=== PATIENT | female | born 1980 | race Caucasian/White ===

== ENCOUNTER 2016-11-17 00:15 | Emergency (ER) | payer BC, OTHER ==
[2016-11-17] MEDS ORDERED: AMOX TR/POT CLAV 875MG/125MG TABLETS (FP) PO STA (00:32)
--- NOTE | 2016-11-17 00:32 | PDOC ---
History of Present Illness - General History Source: Patient <Thien Olvera - Last Filed: 11/17/16 00:35> - General History Source: Patient Exam Limitations: No Limitations - History of Present Illness Initial Comments: 11/17/16 00:40 The patient is a 36 year old female with significant past medical history of anemia who presents to the ED with 1 day of bilateral ear pain. She describes her ear pain as a pressure-like sensation. Patient reports having tactile fever. 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 The patient denies chills, cough, SOB, chest pain, and palpitations. The patient denies abdominal pain, nausea, vomiting, and diarrhea. Allergies: codeine Social History: No alcohol, tobacco, or drug use reported. Past Surgical History: None reported PCP: None reported <Massiel Jj - Last Filed: 11/17/16 00:40> - General Chief Complaint: Ear Problem Stated Complaint: EAR PAIN Time Seen by Provider: 11/17/16 00:26 Past History - Past Medical History Anemia: Yes Kidney Stones: Yes - Psycho/Social/Smoking Cessation Hx Anxiety: No Suicidal Ideation: No Smoking Status: No Smoking History: Never smoked Have you smoked in the past 12 months: No Number of Cigarettes Smoked Daily: 0 Hx Alcohol Use: No Substance Use Type: None <Thien Olevra - Last Filed: 11/17/16 00:35> <Massiel Jj - Last Filed: 11/17/16 00:40> - Past Medical History Allergies/Adverse Reactions: Allergies Allergy/AdvReac Type Severity Reaction Status Date / Time codeine [Codeine] Allergy Verified 11/17/16 00:29 Home Medications: Ambulatory Orders Esomeprazole Mag Trihydrate [Nexium] 20 mg PO BID #14 capsule 05/05/14 Amox-Tr/K Cl [Augmentin 875Mg Tablet] 1 tab PO BID #20 tablet 11/17/16 Ibuprofen 800 mg PO TID #30 tablet 11/17/16 Pseudoephedrine HCl [Sudafed] 30 mg PO Q6H #20 tablet 11/17/16 Review of Systems - Review of Systems Able to Perform ROS?: Yes Comments:: 11/17/16 00:40 CONSTITUTIONAL: +tactile fever Absent: no chills, no fatigue EYES: Absent: visual changes ENT: +bilateral ear pain Absent: myra sore throat CARDIOVASCULAR: Absent: chest pain, no palpitations RESPIRATORY: Absent: cough, no SOB GI: Absent: abdominal pain, no nausea, no vomiting, no constipation, no diarrhea GENITOURINARY: Absent: dysuria, no frequency, no hematuria MUSKULOSKELETAL: Absent: back pain, no arthralgia, no myalgia SKIN: Absent: rash NEURO: Absent: headache <Massiel Jj - Last Filed: 11/17/16 00:40> *Physical Exam - Vital Signs Last Vital Signs Temp Pulse Resp BP Pulse Ox 98.4 F 78 18 131/100 100 11/17/16 00:30 11/17/16 00:30 11/17/16 00:30 11/17/16 00:30 11/17/16 00:30 <Thien Olvera - Last Filed: 11/17/16 00:35> - Vital Signs Last Vital Signs Temp Pulse Resp BP Pulse Ox 98.4 F 78 18 131/100 100 11/17/16 00:30 11/17/16 00:30 11/17/16 00:30 11/17/16 00:30 11/17/16 00:30 - Physical Exam Comments: 11/17/16 00:40 GENERAL: Well-appearing, well-nourished. No apparent distress. HEENT: Normocephalic, atraumatic. PERRL, EOM intact. Bilateral erythema and edema of both ear canals. Bilateral otalgia with serous discharge. CARDIOVASCULAR: Normal S1, S2. Regular rate and rhythm. PULMONARY: Clear to auscultation bilaterally. ABDOMEN: Soft, non-distended, non-tender. EXTREMITIES: Normal ROM in all four extremities. No gross deformities. SKIN: Warm, dry. No rash NEUROLOGICAL: No focal neurological deficits. <Massiel Jj - Last Filed: 11/17/16 00:40> Medical Decision Making - Medical Decision Making 11/17/16 00:36 Dr. Olvera: The scribe's documentation has been prepared under my direction and personally reviewed by me in its entirery. I confirm that the note above accurately reflects all work, treatment, procedures, and medical decision making performed by me. Pt with bilateral ear pain. Found to have otitis externa. Rz medication including Augment 875mg transmitted to the pharmacy <Thien Olvera - Last Filed: 11/17/16 00:35> *DC/Admit/Observation/Transfer - Discharge Dispostion Admit: No <Thien Olvera - Last Filed: 11/17/16 00:35> - Attestations Scribe Attestion: 11/17/16 00:40 Documentation prepared by Massiel Jj, acting as medical officer for Thien Olvera MD <Massiel Jj - Last Filed: 11/17/16 00:40> Diagnosis at time of Disposition: Bilateral otitis externa Qualifiers: Otitis externa type: unspecified type Chronicity: acute Qualified Code(s): H60.503 - Unspecified acute noninfective otitis externa, bilateral - Discharge Dispostion Disposition: HOME Condition at time of disposition: Stable - Prescriptions Prescriptions: Amox-Tr/K Cl [Augmentin 875Mg Tablet] 1 tab PO BID #20 tablet Ibuprofen 800 mg PO TID #30 tablet Pseudoephedrine HCl [Sudafed] 30 mg PO Q6H #20 tablet - Patient Instructions Printed Discharge Instructions: DI for Otitis Externa
[2016-11-17] MEDS ORDERED: PSEUDOEPHEDRINE HCL 30 MG TABLET PO STA (00:33)
[2016-11-17] MEDS ORDERED: IBUPROFEN 400 MG TABLET (FP) PO ONE ×2 (00:38→01:07)
[2016-11-17 00:40] VITALS: BP 131/100; PULSE 78; TEMP 98.4; BMI 35.0
[2016-11-17] MEDS ORDERED: PSEUDOEPHEDRINE HCL 60 MG TABLET ONE (01:07)
[2016-11-17] MEDS ORDERED: AMOX TR/POT CLAV 875MG/125MG TABLETS (FP) ONE (01:07)
== END 2016-11-17 01:11 | disposition home or self-care (01) ==
LOC: JER 00:15
DX: H60.503 Unspecified acute noninfective otitis externa, bilateral (principal)
CPT/HCPCS: 99281-25

== ENCOUNTER 2024-02-29 20:33 | Observation (INO) | payer BC ==
[2024-02-29] MEDS ORDERED: ACETAMINOPHEN INJECTION 100 ML IVPB ONE (22:02)
[2024-02-29] MEDS ORDERED: ONDANSETRON 4 MG/2 ML VIAL ONE (22:02)
[2024-02-29] MEDS: ONDANSETRON 4 MG/2 ML VIAL IVPUSH ONE (22:29)
[2024-02-29] MEDS: SODIUM CHLORIDE 1,000 ML IV STA (22:29)
[2024-02-29] MEDS: ACETAMINOPHEN 1000 MG/100 ML BAG IVPB ONE (22:29)
[2024-02-29 22:42] LABS: BASO % 0.2 % (0-2.0); EOS % 0.2 % (0-4.5); HEMATOCRIT 30.2 % (32.4-45.2); HEMOGLOBIN 9.6 GM/dL (10.7-15.3); MCH 23.1 pg (25.7-33.7); MCHC 31.8 g/dl (32.0-36.0); MEAN CELL VOLUME 72.6 fl (80-96); MEAN PLT VOLUME 7.7 fl (7.5-11.1); MONO % 7.7 % (3.8-10.2); NEUT % 81.9 % (42.8-82.8); PLATELET COUNT 287 10^3/uL (134-434); RBC 4.16 M/mm3 (3.60-5.2); RDW 17.9 % (11.6-15.6); WHITE BLOOD COUNT 9.3 K/mm3 (4.0-10.0)
[2024-02-29] MEDS ORDERED: CEFTRIAXONE 1 GM/50 ML BAG ONE (22:42)
[2024-02-29 22:43] LABS: PH,URINE 6.5 (5.0-8.0); URINE APPEARANCE CLEAR; URINE BILIRUBIN NEGATIVE (NEGATIVE); URINE COLOR YELLOW; URINE GLUCOSE (UA) NEGATIVE (NEGATIVE); URINE KETONE NEGATIVE (NEGATIVE); URINE LEUK ESTERASE NEGATIVE (NEGATIVE); URINE NITRITE NEGATIVE (NEGATIVE); URINE PROTEIN TRACE (NEGATIVE)
[2024-02-29 22:50] LABS: INR 1.18 (0.83-1.09); PROTHROMBIN TIME (PATIENT) 13.5 SEC (9.7-13.0)
[2024-02-29] MEDS: CEFTRIAXONE 1,000 MG in DEXTROSE 5%-WATER - 50 ML IVPB ONE (22:50)
[2024-02-29 22:52] LABS: ACTIVATED PTT 30.7 SECONDS (25.2-36.5)
[2024-02-29 22:58] LABS: VENOUS BASE EXCESS -0.3 mmol/L (-2-2); VENOUS O2 SATURATION 66.6 % (70-80); VENOUS PCO2 39.9 mmHg (38-52); VENOUS PH 7.403 (7.310-7.410)
[2024-02-29 23:08] LABS: POTASSIUM 3.9 mmol/L (3.5-5.1)
[2024-02-29 23:09] LABS: CALCIUM 8.7 mg/dL (8.5-10.1)
[2024-02-29 23:10] LABS: ALBUMIN 3.8 g/dl (3.4-5.0); BLOOD UREA NITROGEN 13.9 mg/dL (7-18)
[2024-02-29 23:13] LABS: CREATININE 1.1 mg/dL (0.55-1.3)
[2024-02-29 23:15] LABS: BILIRUBIN,TOTAL 0.4 mg/dL (0.2-1); TOT PROT 7.4 g/dl (6.4-8.2)
[2024-03-01] MEDS ORDERED: IBUPROFEN 600 MG TABLET (FP) PO ONE (01:08)
[2024-03-01] MEDS: IBUPROFEN 600 MG TABLET (FP) PO ONE (01:26)
[2024-03-01] MEDS: SODIUM CHLORIDE 1,000 ML IV STA (02:25)
[2024-03-01] MEDS: SODIUM CHLORIDE 1,000 ML IV SCH (02:25)
[2024-03-01] MEDS: ACETAMINOPHEN 1000 MG/100 ML BAG IVPB PRN (04:48)
[2024-03-01] MEDS: KETOROLAC TROMETHAMINE 15 MG/ML VIAL IVPUSH PRN (10:44)
[2024-03-01] MEDS: LEVOTHYROXINE NA 88 MCG TABLET (FP) PO SCH (14:22)
[2024-03-01 16:04] LABS: HEMATOCRIT 32.3 % (32.4-45.2); HEMOGLOBIN 10.1 GM/dL (10.7-15.3); MCHC 31.4 g/dl (32.0-36.0); MEAN CELL VOLUME 73.3 fl (80-96); MEAN PLT VOLUME 7.7 fl (7.5-11.1); PLATELET COUNT 275 10^3/uL (134-434); RBC 4.41 M/mm3 (3.60-5.2); RDW 18.2 % (11.6-15.6); RETICULOCYTES 0.98 % (0.5-1.5); WHITE BLOOD COUNT 7.8 K/mm3 (4.0-10.0)
[2024-03-01 16:18] LABS: CHLORIDE 106 mmol/L (98-107); POTASSIUM 3.4 mmol/L (3.5-5.1); POTASSIUM 3.5 mmol/L (3.5-5.1); SODIUM 137 mmol/L (136-145)
[2024-03-01 16:20] LABS: ALBUMIN 3.8 g/dl (3.4-5.0); CALCIUM 8.9 mg/dL (8.5-10.1)
[2024-03-01 16:21] LABS: ANION GAP 5 mmol/L (4-13); BLOOD UREA NITROGEN 8.7 mg/dL (7-18); CALCIUM 8.9 mg/dL (8.5-10.1); CO2 27 mmol/L (21-32); GLUCOSE,RANDOM 94 mg/dL (74-106); MAGNESIUM 2.2 mg/dL (1.8-2.4)
[2024-03-01 16:23] LABS: CREATININE 0.9 mg/dL (0.55-1.3)
[2024-03-01 16:25] LABS: BILIRUBIN,TOTAL 0.7 mg/dL (0.2-1); CREATININE 0.9 mg/dL (0.55-1.3); TOT PROT 7.6 g/dl (6.4-8.2)
[2024-03-01 16:48] LABS: ERYTHROCYTE SEDIMENTATION RATE 37 mm/hr (0-20)
[2024-03-01 17:15] LABS: HIV INTERPRETATION NEGATIVE (NEGATIVE)
[2024-03-01] MEDS: PANTOPRAZOLE 40 MG TABLET PO SCH (17:16)
[2024-03-01] MEDS: CEFTRIAXONE 2 GM in DEXTROSE 5%-WATER 100 ML IVPB SCH (18:48)
[2024-03-01] MEDS: VANCOMYCIN PREMIX 1.5 GM 1,500 MG/300 ML BAG IVPB ONE (19:08)
[2024-03-01 19:25] VITALS: BMI 36.3
[2024-03-01] MEDS: ONDANSETRON 4 MG/2 ML VIAL IVPUSH PRN (21:09)
[2024-03-02] MEDS ORDERED: ACYCLOVIR 1000 MG (50MG/ML) VIAL IVPB ONE (04:29)
[2024-03-02] MEDS: WATER IVPB ONE (05:28)
[2024-03-02] MEDS: ACYCLOVIR SODIUM IVPB ONE (05:28)
[2024-03-02] MEDS: DEXTROSE 5% IVPB ONE (05:28)
[2024-03-02] MEDS: SODIUM CHLORIDE 1,000 ML IV SCH (06:30)
[2024-03-02] MEDS ORDERED: KETOROLAC TROMETHAMINE 15 MG/ML VIAL IVPUSH STA (07:56)
[2024-03-02] MEDS: diazePAM CARPU-JECT 10 MG/2 ML DISP.SYRIN IVPUSH STA (07:59)
[2024-03-02] MEDS ORDERED: LIDOCAINE HCL 1%, 10 MG/ML (20ML VIAL) ONE (08:24)
[2024-03-02] MEDS: ACETAMINOPHEN 1000 MG/100 ML BAG IVPB STA (08:55)
[2024-03-02 09:12] LABS: BF GLUCOSE (CSF ONLY) 64 mg/dL (40-70)
[2024-03-02 09:22] VITALS: RESP 16
[2024-03-02 09:50] LABS: CSF APPEARANCE CLEAR (CLEAR); CSF COLOR COLORLESS (COLORLESS)
[2024-03-02 09:51] LABS: CSF WBC 1 mm3 (0-5)
[2024-03-02 09:58] LABS: POTASSIUM 3.9 mmol/L (3.5-5.1)
[2024-03-02 10:00] LABS: CALCIUM 8.4 mg/dL (8.5-10.1)
[2024-03-02 10:01] LABS: ALBUMIN 3.3 g/dl (3.4-5.0); BLOOD UREA NITROGEN 8.2 mg/dL (7-18)
[2024-03-02 10:04] LABS: CREATININE 0.9 mg/dL (0.55-1.3)
[2024-03-02 10:06] LABS: BILIRUBIN,TOTAL 0.5 mg/dL (0.2-1); TOT PROT 7.4 g/dl (6.4-8.2)
[2024-03-02 10:39] LABS: HEMATOCRIT 31.1 % (32.4-45.2); HEMOGLOBIN 9.8 GM/dL (10.7-15.3); MCHC 31.6 g/dl (32.0-36.0); MEAN CELL VOLUME 72.8 fl (80-96); RBC 4.27 M/mm3 (3.60-5.2); RDW 17.7 % (11.6-15.6)
[2024-03-02 11:06] LABS: ANISOCYTOSIS 0; HELMET CELLS 0; HOWELL-JOLLY BODIES 0; MACROCYTOSIS 0; OVALOCYTE 0; ROULEAU 0; SICKELED CELLS 0; TARGET CELLS 0; TEAR DROP CELLS 0; TOXIC GRANULATION 0
[2024-03-02 14:48] VITALS: BP 121/73; PULSE 71; TEMP 98.7
[2024-03-05 16:09] LABS: C-ANCA <1:20 titer (Neg:<1:20)
[2024-03-06 10:07] LABS: METHYLMALONIC ACID- 467 nmol/L (0-378)
== END 2024-03-02 18:01 | disposition left against medical advice (07) ==
LOC: JER 20:33 → UNDOADMOB 03-01 00:42 → JERBED 03-01 00:42 → INTOOBSV 03-01 03:14 → OBSVTOIN 03-01 03:14 → JERBED 03-01 06:18 → J5S 03-01 06:18 → JERBED 03-01 13:11
PROVIDERS: ADMIT Internal Medicine
PROC: 3E033NZ Introduction of Analgesics, Hypnotics, Sedatives into Peripheral Vein, Percutaneous Approach (ICD-10-PCS; principal; 2024-03-01)
PROC: 3E03329 Introduction of Other Anti-infective into Peripheral Vein, Percutaneous Approach (ICD-10-PCS; 2024-03-01)
PROC: 3E0333Z Introduction of Anti-inflammatory into Peripheral Vein, Percutaneous Approach (ICD-10-PCS; 2024-03-01)
PROC: 3E0337Z Introduction of Electrolytic and Water Balance Substance into Peripheral Vein, Percutaneous Approach (ICD-10-PCS; 2024-03-01)
PROC: 009U3ZX Drainage of Spinal Canal, Percutaneous Approach, Diagnostic (ICD-10-PCS; 2024-03-01)
DX: R50.9 Fever, unspecified (principal); I10 Essential (primary) hypertension; M79.7 Fibromyalgia; M19.90 Unspecified osteoarthritis, unspecified site; M54.9 Dorsalgia, unspecified; N12 Tubulo-interstitial nephritis, not specified as acute or chronic; E06.3 Autoimmune thyroiditis; K76.0 Fatty (change of) liver, not elsewhere classified; Z87.440 Personal history of urinary (tract) infections; N28.1 Cyst of kidney, acquired; R10.11 Right upper quadrant pain; Z88.5 Allergy status to narcotic agent
CPT/HCPCS: 0241U-QW; 36415; 70470-TC; 71046-TC-FY; 74177-TC; 76700-TC; 78226-TC; 80048; 80053; 81003; 82308; 82550; 82607; 82728; 82803; 82945; 83520; 83540; 83550; 83605; 83690; 83735; 83921; 84100; 84157; 84466; 84484; 84703; 85025; 85045; 85610; 85651; 85730; 86038; 86140; 86200; 86256; 86431; 86850; 86900; 86901; 87040; 87070; 87076; 87086; 87205; 87207; 87389; 87529; 93005; 93010; 93306-TC; 99285-25; A9537; G0378; J0131; Q9967

== ENCOUNTER 2024-03-04 13:23 | Inpatient (IN) | payer BC ==
[2024-03-04 13:33] VITALS: BMI 36.3
[2024-03-04 16:43] LABS: URINE APPEARANCE CLEAR; URINE BILIRUBIN NEGATIVE (NEGATIVE); URINE COLOR YELLOW; URINE GLUCOSE (UA) NEGATIVE (NEGATIVE); URINE KETONE NEGATIVE (NEGATIVE); URINE LEUK ESTERASE NEGATIVE (NEGATIVE); URINE NITRITE NEGATIVE (NEGATIVE); URINE PROTEIN TRACE (NEGATIVE)
[2024-03-04 16:43] LABS: BASO % 0.8 % (0-2.0); EOS % 1.2 % (0-4.5); HEMATOCRIT 29.7 % (32.4-45.2); HEMOGLOBIN 9.5 GM/dL (10.7-15.3); MCH 23.4 pg (25.7-33.7); MCHC 31.9 g/dl (32.0-36.0); MEAN CELL VOLUME 73.5 fl (80-96); MEAN PLT VOLUME 7.8 fl (7.5-11.1); MONO % 12.9 % (3.8-10.2); NEUT % 45.1 % (42.8-82.8); PLATELET COUNT 286 10^3/uL (134-434); RBC 4.05 M/mm3 (3.60-5.2); RDW 18.3 % (11.6-15.6); WHITE BLOOD COUNT 4.1 K/mm3 (4.0-10.0)
[2024-03-04 17:03] LABS: CALCIUM 8.8 mg/dL (8.5-10.1)
[2024-03-04 17:04] LABS: ALBUMIN 3.6 g/dl (3.4-5.0); BLOOD UREA NITROGEN 8.2 mg/dL (7-18)
[2024-03-04 17:07] LABS: CREATININE 0.8 mg/dL (0.55-1.3)
[2024-03-04 17:08] LABS: BILIRUBIN,TOTAL 0.3 mg/dL (0.2-1); TOT PROT 7.5 g/dl (6.4-8.2)
[2024-03-04] MEDS ORDERED: CEFTRIAXONE 1 GM/50 ML BAG ONE (17:41)
[2024-03-04] MEDS: ONDANSETRON 4 MG/2 ML VIAL IVPUSH ONE (20:08)
[2024-03-05] MEDS: ACETAMINOPHEN 500 MG TABLET (FP) PO PRN (06:02)
[2024-03-05 09:10] LABS: BASO % 0.4 % (0-2.0); EOS % 1.3 % (0-4.5); HEMATOCRIT 27.8 % (32.4-45.2); LYMPH % 36.9 % (8-40); MCH 23.6 pg (25.7-33.7); MCHC 32.6 g/dl (32.0-36.0); MEAN CELL VOLUME 72.4 fl (80-96); MONO % 11.7 % (3.8-10.2); NEUT % 49.7 % (42.8-82.8); PLATELET COUNT 281 10^3/uL (134-434); RBC 3.84 M/mm3 (3.60-5.2); RDW 18.1 % (11.6-15.6); WHITE BLOOD COUNT 4.2 K/mm3 (4.0-10.0)
[2024-03-05 09:20] LABS: POTASSIUM 3.9 mmol/L (3.5-5.1)
[2024-03-05 09:24] LABS: BLOOD UREA NITROGEN 9.2 mg/dL (7-18); CALCIUM 8.8 mg/dL (8.5-10.1)
[2024-03-05 09:27] LABS: CREATININE 0.9 mg/dL (0.55-1.3)
[2024-03-05] MEDS: CEFTRIAXONE 2 GM in DEXTROSE 5%-WATER 100 ML IVPB SCH (09:44)
[2024-03-05] MEDS: ONDANSETRON 4 MG/2 ML VIAL IVPUSH PRN (09:54)
[2024-03-05] MEDS ORDERED: CEFTRIAXONE 2 GM-D5W BAG 2 GM/50 ML BAG IVPB SCH (10:00)
[2024-03-05] MEDS: metoPROLOL SUCCINATE 25 MG TAB.SR.24H (FP) PO SCH (10:15)
[2024-03-05 18:45] VITALS: RESP 18
[2024-03-06 07:00] VITALS: TEMP 98.6
[2024-03-06 09:52] VITALS: BP 132/87; PULSE 65
== END 2024-03-06 11:00 | disposition home or self-care (01) | DRG 872 ==
LOC: JER 13:23 → JERBED 15:47 → J8W 19:07
PROVIDERS: ADMIT Internal Medicine; ATTEND Nurse Practitioner Acute Care
DX: R78.81 Bacteremia (principal); I10 Essential (primary) hypertension; M79.7 Fibromyalgia; D64.9 Anemia, unspecified; R10.11 Right upper quadrant pain; R74.01 Elevation of levels of liver transaminase levels; R76.8 Other specified abnormal immunological findings in serum
CPT/HCPCS: 36415; 71045-TC-FY; 80048; 80053; 81003; 83605; 85025; 87040; 87086; 99285-25

== ENCOUNTER 2024-03-12 23:51 | Emergency (ER) | payer BC ==
[2024-03-12 23:59] VITALS: BP 131/90; PULSE 80; RESP 18; TEMP 99.5; BMI 35.9
[2024-03-13] MEDS ORDERED: diphenhydrAMINE HCL 25 MG CAPSULE (FP) PO ONE (01:51)
[2024-03-13] MEDS ORDERED: FLUCONAZOLE 150 MG TABLET PO ONE (01:51)
[2024-03-13] MEDS: FLUCONAZOLE 150 MG TABLET PO ONE (01:56)
[2024-03-13] MEDS: KETOCONAZOLE 2% CREAM - 60GM TUBE TP ONE (01:56)
[2024-03-13] MEDS: diphenhydrAMINE HCL 50 MG CAPSULE PO ONE (01:56)
[2024-03-13] MEDS: diphenhydrAMINE HCL 25 MG CAPSULE (FP) PO ONE (01:57)
== END 2024-03-13 02:00 | disposition home or self-care (01) ==
LOC: JER 23:51
DX: R21 Rash and other nonspecific skin eruption (principal); B37.31 Acute candidiasis of vulva and vagina
CPT/HCPCS: 99283-25

== ENCOUNTER 2025-05-11 03:46 | Emergency (ER) | payer OTHER ==
[2025-05-11 03:54] VITALS: BP 157/118; PULSE 78; RESP 18; TEMP 98.2; BMI 37.0
[2025-05-11] MEDS ORDERED: METOCLOPRAMIDE HCL INJECTION 10 MG/2 ML VIAL ONE (04:26)
[2025-05-11] MEDS: LACTATED RINGERS SOLUTION 1000 ML INFUS.BAG IV ONE (04:53)
[2025-05-11] MEDS: METOCLOPRAMIDE HCL INJECTION 10 MG/2 ML VIAL IVPB ONE (04:54)
[2025-05-11 04:56] LABS: ABSOLUTE IMMATURE GRANULOCYTES 0.02 x10^3/uL (0.0-0.031); BASOPHILS # 0.04 x10^3/uL (0.01-0.08); EOSINOPHIL % 1.0 % (0.7-5.8); EOSINOPHILS # 0.07 x10^3/uL (0.04-0.36); MCHC 30.4 g/dl (32.2-35.5); MEAN CELL VOLUME 74.5 fl (79.4-94.8); MEAN PLT VOLUME 10.1 fl (9.4-12.3); MONOCYTE # 0.63 x10^3/uL (0.24-0.86); MONOCYTE % 8.8 % (4.7-12.5); RDW 17.7 % (12.2-17.1)
[2025-05-11 05:03] LABS: HCG,QUALITATIVE URINE Negative
[2025-05-11 05:06] LABS: EPI CELLS 3 /uL (0-25.1); HYALINE CASTS 0 /uL (0-3.1); URINE APPEARANCE CLEAR; URINE BACTERIA 18 /uL (0-1359); URINE BILIRUBIN NEGATIVE (NEGATIVE); URINE COLOR YELLOW; URINE GLUCOSE (UA) NEGATIVE (NEGATIVE); URINE KETONE NEGATIVE (NEGATIVE); URINE LEUK ESTERASE NEGATIVE (NEGATIVE); URINE NITRITE NEGATIVE (NEGATIVE); URINE PROTEIN TRACE (NEGATIVE); URINE RBC 197 /uL (0-23.9); URINE UROBILINOGEN 0.2 mg/dL (0.2-1.0); URINE WBC 2 /uL (0-25.8)
[2025-05-11 05:15] LABS: GLUCOSE,RANDOM 100.0 mg/dL (74-106)
[2025-05-11 05:16] LABS: TOT PROT 7.9 g/dl (6.4-8.2)
[2025-05-11 05:17] LABS: CO2 24.0 mmol/L (21-32)
[2025-05-11 05:19] LABS: ALK PHOS 86.0 U/L (40-150)
[2025-05-11 05:21] LABS: CREATININE 1.0 mg/dL (0.55-1.3); SGOT/AST 26.0 U/L (5-34); SGPT/ALT 29.0 U/L (0-55)
== END 2025-05-11 06:00 | disposition home or self-care (01) ==
LOC: JER 03:46
PROC: 3E033GC Introduction of Other Therapeutic Substance into Peripheral Vein, Percutaneous Approach (ICD-10-PCS; principal; 2025-05-11)
DX: R51.9 Headache, unspecified (principal)
CPT/HCPCS: 36415; 80053; 81003; 83735; 84703; 85025; 87086; 87637-QW; 99284-25